=== PATIENT | male | born 1980 | race Caucasian/White ===

== ENCOUNTER 2024-05-11 23:22 | Inpatient (IN) | payer BC ==
[2024-05-11] MEDS ORDERED: Sodium Chloride 0.9% 10 ML Syringe FLUSH PRN (23:44)
[2024-05-11 23:59] LABS: BASOPHILS PERCENT AUTO 0.5 % (0.0-1.0); EOSINOPHILS PERCENT AUTO 10.3 % (1.0-3.0); HEMATOCRIT 50.6 % (40.0-54.0); HEMOGLOBIN 17.7 g/dL (14.0-18.0); LYMPHOCYTES PERCENT AUTO 39.3 % (20.5-50.1); MEAN CORPUSCULAR HEMOGLOBIN 33.7 pg (27.0-34.0); MEAN CORPUSCULAR VOLUME 96.2 fL (80-100); MONOCYTES PERCENT AUTO 13.6 % (2-8); NEUTROPHILS PERCENT AUTO 36.3 % (42.2-75.2); PLATELET COUNT,PLT 138 10^3/uL (150-450); RED BLOOD CELL COUNT 5.26 10^6/uL (4.6-6.2); WHITE BLOOD CELL COUNT,WBC 6.3 10^3/uL (5.0-10.0)
[2024-05-12] MEDS: MVI, Adult with Vitamin K 10 ML, Folic Acid 1 MG, Thiamine 100 MG in Lactated Ringers 1... IV ONE (00:01)
[2024-05-12 00:17] LABS: INR 0.9 (0.9-1.2); PROTHROMBIN TIME 9.4 SEC (9.0-12.0); PTT,PARTIAL THROMBOPLSTIN TIME 31.7 SEC (22.0-34.0)
[2024-05-12 00:18] LABS: ALBUMIN 4.2 g/dL (3.4-5.0); ANION GAP 13.3 mEq/L (7-13); BILIRUBIN TOTAL 1.1 mg/dL (0.2-1.0); BUN/CREATININE RATIO 6.1 (No establ ref range); CREATININE 0.82 mg/dL (0.70-1.30); EST CRCL DRUG DOSING (CG) 122.44 mL/min; MAGNESIUM 1.9 mg/dL (1.8-2.4); POTASSIUM,K 3.3 mmol/L (3.5-5.1); PROTEIN TOTAL,TP 8.4 g/dL (6.4-8.2)
[2024-05-12 00:18] LABS: APPEARANCE,URINE CLEAR (CLEAR); BILIRUBIN,URINE NEGATIVE (NEGATIVE); COLOR,URINE YELLOW (YELLOW); GLUCOSE,URINE NEGATIVE (NEGATIVE); KETONES,URINE NEGATIVE (NEGATIVE); LEUKOCYTE ESTERASE,URINE NEGATIVE (NEGATIVE); NITRITE,URINE NEGATIVE (NEGATIVE); OCCULT BLOOD,URINE TRACE-INTACT (NEGATIVE); PH,URINE 5.5 (5.0-9.0); PROTEIN,URINE NEGATIVE (NEGATIVE); UROBILINOGEN,URINE 0.2 mg/dL (0.2-1.0)
[2024-05-12 00:22] LABS: AMPHETAMINES,URINE NEGATIVE (NEGATIVE); BARBITURATES,URINE NEGATIVE (NEGATIVE); BENZODIAZEPINE,URINE POSITIVE (NEGATIVE); MDMA (ECSTASY), URINE NEGATIVE (NEGATIVE); METHADONE,URINE NEGATIVE (NEGATIVE); METHAMPHETAMINES,URINE NEGATIVE (NEGATIVE); OPIATES,URINE NEGATIVE (NEGATIVE); OXYCODONE,URINE NEGATIVE (NEGATIVE); PHENCYCLIDINE,URINE NEGATIVE (NEGATIVE); TCA,URINE POSITIVE (NEGATIVE)
[2024-05-12 00:28] LABS: AMORPHOUS SEDIMENT,URINE RARE /HPF (NOT SEEN); BACTERIA,URINE RARE /HPF (0-FEW/HPF); EPITHELIAL CELLS,URINE NOT SEEN /HPF (NOT SEEN); MUCUS,URINE RARE /LPF (NOT SEEN); RBC,URINE 0-5 /HPF (0-5); WBC,URINE 0-5 /HPF (0-5/HPF)
[2024-05-12] MEDS ORDERED: hydrALAZINE 20 MG/ML SDV IVPUSH PRN (02:15)
[2024-05-12] MEDS ORDERED: Sennosides/Docusate Sodium 50-8.6 MG Tab PO PRN (02:21)
[2024-05-12] MEDS ORDERED: Flumazenil 0.1 MG/ML 5 ML MDV IVPUSH PRN (02:21)
[2024-05-12] MEDS ORDERED: LORazepam 2 MG/ML SDV IVPUSH PRN (02:21)
[2024-05-12] MEDS ORDERED: Albuterol/Ipratropium 3.0-0.5 MG/3 ML Neb Soln NEB PRN (02:21)
[2024-05-12] MEDS ORDERED: Ondansetron 4 MG/2 ML SDV IVPUSH PRN (02:21)
[2024-05-12] MEDS ORDERED: Polyethylene Glycol 3350 Powder 17 GM Packet PO PRN (02:21)
[2024-05-12] MEDS ORDERED: Magnesium Hydroxide 400 MG/5 ML Susp 30 ML Cup PO PRN (02:21)
[2024-05-12] MEDS ORDERED: Naloxone 2 MG/2 ML Syringe IVPUSH PRN (02:21)
[2024-05-12] MEDS ORDERED: Ibuprofen 600 MG Tab PO PRN (02:21)
[2024-05-12] MEDS ORDERED: HYDROmorphone 0.5 MG/0.5 ML Syringe IVPUSH PRN (02:21)
[2024-05-12] MEDS ORDERED: cloNIDine 0.1 MG Tab PO PRN (02:27)
[2024-05-12] MEDS: Pantoprazole 40 MG Vial IVPUSH ONE (03:10)
[2024-05-12] MEDS: Thiamine 100 MG in Sodium Chloride 0.9% 100 ML IV ONE (03:10)
[2024-05-12] MEDS: Sodium Chloride 0.9% 1,000 ML IV SCH (03:26)
[2024-05-12] MEDS: SODIUM CHLORIDE 0.9% IV SCH (04:48)
[2024-05-12] MEDS: LORAZEPAM IV SCH (04:48)
[2024-05-12] MEDS ORDERED: levETIRAcetam 500 MG Tab PO SCH ×2 (09:00→21:00)
[2024-05-12] MEDS: Potassium Chloride 10 MEQ Tab.ER PO SCH (10:54)
[2024-05-12] MEDS: DULoxetine 30 MG Cap PO SCH (10:54)
[2024-05-12] MEDS: Nicotine 21 MG/24 Hr Patch TRDERM SCH (10:54)
[2024-05-12] MEDS: Metoprolol Tartrate 5 MG/5 ML SDV IVPUSH PRN (12:04)
[2024-05-12] MEDS: cloNIDine 0.1 MG Tab PO ONE (12:55)
[2024-05-12] MEDS: Pantoprazole 40 MG Tab.CR PO SCH (18:11)
[2024-05-12] MEDS: Folic Acid 1 MG Tab PO SCH (19:24)
[2024-05-12] MEDS: cloNIDine 0.1 MG Tab PO PRN (19:24)
[2024-05-12] MEDS: Thiamine 100 MG Tab PO SCH (19:25)
[2024-05-12] MEDS: Multivitamins with Iron/Calcium/Folic Acid/Minerals Tab PO SCH (21:30)
[2024-05-13 06:21] LABS: BASOPHILS PERCENT AUTO 0.3 % (0.0-1.0); EOSINOPHILS PERCENT AUTO 7.3 % (1.0-3.0); HEMATOCRIT 43.9 % (40.0-54.0); HEMOGLOBIN 14.8 g/dL (14.0-18.0); LYMPHOCYTES PERCENT AUTO 23.2 % (20.5-50.1); MEAN CORPUSCULAR HEMOGLOBIN 33.3 pg (27.0-34.0); MEAN CORPUSCULAR HGB CONC 33.7 g/dL (33.0-35.0); MEAN CORPUSCULAR VOLUME 98.9 fL (80-100); MONOCYTES PERCENT AUTO 10.5 % (2-8); NEUTROPHILS PERCENT AUTO 58.7 % (42.2-75.2); PLATELET COUNT,PLT 113 10^3/uL (150-450); RED BLOOD CELL COUNT 4.44 10^6/uL (4.6-6.2); WHITE BLOOD CELL COUNT,WBC 6.3 10^3/uL (5.0-10.0)
[2024-05-13 06:41] LABS: A/G RATIO 1.1; ALBUMIN 3.5 g/dL (3.4-5.0); ANION GAP 13.6 mEq/L (7-13); BILIRUBIN TOTAL 1.7 mg/dL (0.2-1.0); BUN/CREATININE RATIO 10.7 (No establ ref range); CALCIUM 8.7 mg/dL (8.5-10.1); CREATININE 0.75 mg/dL (0.70-1.30); EST CRCL DRUG DOSING (CG) 133.87 mL/min; MAGNESIUM 1.9 mg/dL (1.8-2.4); POTASSIUM,K 3.6 mmol/L (3.5-5.1); PROTEIN TOTAL,TP 6.8 g/dL (6.4-8.2)
[2024-05-13] MEDS ORDERED: cloNIDine 0.1 MG Tab PO PRN ×2 (21:00)
[2024-05-13] MEDS: cloNIDine 0.1 MG Tab PO SCH (22:59)
[2024-05-13] MEDS: oxyCODONE 5 MG Tab PO PRN (22:59)
[2024-05-14 06:14] LABS: BASOPHILS PERCENT AUTO 0.3 % (0.0-1.0); EOSINOPHILS PERCENT AUTO 6.8 % (1.0-3.0); HEMATOCRIT 44.7 % (40.0-54.0); HEMOGLOBIN 15.2 g/dL (14.0-18.0); LYMPHOCYTES PERCENT AUTO 28.1 % (20.5-50.1); MEAN CORPUSCULAR HEMOGLOBIN 33.6 pg (27.0-34.0); MEAN CORPUSCULAR VOLUME 98.9 fL (80-100); MONOCYTES PERCENT AUTO 14.1 % (2-8); NEUTROPHILS PERCENT AUTO 50.7 % (42.2-75.2); PLATELET COUNT,PLT 97 10^3/uL (150-450); RED BLOOD CELL COUNT 4.52 10^6/uL (4.6-6.2); WHITE BLOOD CELL COUNT,WBC 6.2 10^3/uL (5.0-10.0)
[2024-05-14 06:37] LABS: ALBUMIN 3.5 g/dL (3.4-5.0); ANION GAP 10.5 mEq/L (7-13); BILIRUBIN TOTAL 1.3 mg/dL (0.2-1.0); CALCIUM 8.9 mg/dL (8.5-10.1); CREATININE 0.86 mg/dL (0.70-1.30); EST CRCL DRUG DOSING (CG) 116.74 mL/min; MAGNESIUM 1.9 mg/dL (1.8-2.4); POTASSIUM,K 3.5 mmol/L (3.5-5.1); PROTEIN TOTAL,TP 7.1 g/dL (6.4-8.2)
[2024-05-14] MEDS: busPIRone 15 MG Tab PO SCH (09:28)
[2024-05-14] MEDS: QUEtiapine 25 MG Tab PO SCH (20:15)
[2024-05-14] MEDS: Amitriptyline 25 MG Tab PO SCH (20:15)
[2024-05-14] MEDS ORDERED: Propranolol 60 MG Cap.ER PO SCH (21:00)
[2024-05-14] MEDS ORDERED: cloNIDine 0.1 MG Tab PO PRN (21:00)
[2024-05-14] MEDS ORDERED: hydrOXYzine HCl 25 MG Tab PO PRN (22:49)
[2024-05-15 06:38] LABS: BASOPHILS PERCENT AUTO 0.3 % (0.0-1.0); EOSINOPHILS PERCENT AUTO 7.9 % (1.0-3.0); HEMATOCRIT 45.3 % (40.0-54.0); HEMOGLOBIN 15.2 g/dL (14.0-18.0); LYMPHOCYTES PERCENT AUTO 31.8 % (20.5-50.1); MEAN CORPUSCULAR HEMOGLOBIN 33.3 pg (27.0-34.0); MEAN CORPUSCULAR HGB CONC 33.6 g/dL (33.0-35.0); MEAN CORPUSCULAR VOLUME 99.3 fL (80-100); MONOCYTES PERCENT AUTO 12.4 % (2-8); NEUTROPHILS PERCENT AUTO 47.6 % (42.2-75.2); PLATELET COUNT,PLT 105 10^3/uL (150-450); RED BLOOD CELL COUNT 4.56 10^6/uL (4.6-6.2); WHITE BLOOD CELL COUNT,WBC 5.7 10^3/uL (5.0-10.0)
[2024-05-15 06:55] LABS: A/G RATIO 0.9; ALBUMIN 3.4 g/dL (3.4-5.0); ANION GAP 12.8 mEq/L (7-13); BUN/CREATININE RATIO 7.3 (No establ ref range); CALCIUM 8.9 mg/dL (8.5-10.1); CREATININE 0.96 mg/dL (0.70-1.30); EST CRCL DRUG DOSING (CG) 104.58 mL/min; MAGNESIUM 1.9 mg/dL (1.8-2.4); POTASSIUM,K 3.8 mmol/L (3.5-5.1); PROTEIN TOTAL,TP 7.1 g/dL (6.4-8.2)
[2024-05-15] MEDS ORDERED: ACAMPROSATE CALCIUM 333 MG PO SCH (09:00)
[2024-05-15] MEDS: Naltrexone 50 MG Tab PO SCH (09:23)
[2024-05-16] MEDS ORDERED: Propranolol 60 MG Cap.ER PO SCH (21:00)
== END 2024-05-15 10:26 | disposition home or self-care (01) | DRG 775 ==
LOC: DL.ED 23:22 → DL.MS 05-12 01:32 → DL.ED 05-12 01:47
PROVIDERS: ADMIT Internal Medicine; ATTEND Internal Medicine
PROC: HZ2ZZZZ Detoxification Services for Substance Abuse Treatment (ICD-10-PCS; principal; 2024-05-15)
DX: F10.139 Alcohol abuse with withdrawal, unspecified (principal); K74.60 Unspecified cirrhosis of liver; M54.9 Dorsalgia, unspecified; G89.29 Other chronic pain; F15.90 Other stimulant use, unspecified, uncomplicated; E86.0 Dehydration; E87.6 Hypokalemia; E66.9 Obesity, unspecified; F17.210 Nicotine dependence, cigarettes, uncomplicated; F41.8 Other specified anxiety disorders; Y90.6 Blood alcohol level of 120-199 mg/100 ml; K70.10 Alcoholic hepatitis without ascites; D69.6 Thrombocytopenia, unspecified; G40.909 Epilepsy, unspecified, not intractable, without status epilepticus; R44.3 Hallucinations, unspecified; I10 Essential (primary) hypertension; E80.6 Other disorders of bilirubin metabolism; Z68.34 Body mass index [BMI] 34.0-34.9, adult; Z79.899 Other long term (current) drug therapy
CPT/HCPCS: 36415; 80053; 80305-QW; 80307; 81001; 82550; 83735; 85025; 85610; 85730; 96365; 99285; 99285-25; A9270-GY; J2060; J2470; J3360; J3411; J3490; J7030; J7120